=== PATIENT | male | born 1960 | race Caucasian/White ===

== ENCOUNTER 2017-05-31 09:27 | Observation (INO) ==
[2017-05-31] MEDS ORDERED: Nitroglycerin 0.4 MG TAB.SUBL SL ONE (09:51)
--- NOTE | 2017-05-31 09:59 | Emergency Department Note ---
Disposition Clinical Impression: Chest pain Qualifiers: Chest pain type: unspecified Qualified Code(s): R07.9 - Chest pain, unspecified Disposition: Admitted As Inpatient Condition: Fair Forms: ED Satisfaction Letter Time of Disposition: 11:19 Chest Pain HPI - General Chief Complaint: ED Chest Pain Stated Complaint: CP Time Seen by Provider: 05/31/17 09:31 Source: patient Limitations: no limitations Vital Signs Reviewed: Yes Nursing Notes Reviewed: Yes - History of Present Illness HPI Narrative: Patient is a 57-year-old male who presents to [facility] ED with a chief complaint of substernal chest pressure. States the symptoms started this morning when he first woke up around 4 AM. Was a sharp stabbing pain at that time. States the pain went away on its own so he decided to go on to work. The pain then returned as a chest pressure and he decided to drive himself in. Patient has had some shortness of breath with exertion. States he had a park far away and had to stop and rest on his way in to the emergency department. Denies any nausea, vomiting, fever or chills. No recent cough or cold. Patient does have chest pressure at this time. Past medical history significant for coronary artery disease with 2 stents placed approximately 10 years ago. Patient sees agriscience instructor Dr. Merida here and is scheduled to get multiple tests done tomorrow. Pt complaint: chest pain Onset (ago): hour(s) Duration: intermittent Onset: during exertion Pain Location: substernal Severity: moderate Severity scale (1-10): 5 Quality: heaviness, sharp Pain Radiation: RUE, LUE, jaw/teeth Improves with: nothing Worsens with: nothing Associated symptoms: Reports: dyspnea. Denies: nausea, vomiting, fever, cough Treatments prior to arrival chest pain: aspirin - Related Data Home Medications Medication Instructions Recorded Confirmed Atorvastatin [Lipitor] 40 mg PO HS 05/31/17 05/31/17 Clopidogrel [Plavix] 75 mg PO DAILY 05/31/17 05/31/17 Lisinopril 30 mg PO DAILY 05/31/17 05/31/17 Metformin HCl [Glucophage] 1,000 mg PO BID 05/31/17 05/31/17 Metoprolol XL (24 HR) Succ [Toprol 25 mg PO BID 05/31/17 05/31/17 XL] Umeclidinium Brm/Vilanterol Tr 1 puff IH DAILY 05/31/17 05/31/17 [Anoro Ellipta 62.5-25 Mcg INH] hydroCHLOROthiazide 25 mg PO DAILY 05/31/17 05/31/17 [Hydrochlorothiazide] Allergies Allergy/AdvReac Type Severity Reaction Status Date / Time No Known Allergies Allergy Verified 06/07/15 10:12 All systems ED: reviewed and negative except as stated. Chest Pain PMH - Past Medical History Medical history: Reports: coronary artery disease, diabetes, hyperlipidemia, hypertension, myocardial infarction Surgical history: Reports: angioplasty/stent Psychiatric history: Reports: no psych history - Social History Smoking Status: Current every day smoker Alcohol use: Reports: none Drug use: Reports: none Physical Exam - General Limitations: no limitations General appearance: alert, in no apparent distress - Head Head exam: atraumatic, normocephalic, normal inspection - Eye Eye exam: Present: normal appearance, EOMI - ENT ENT exam: normal exam, normal oropharynx, mucous membranes moist - Neck Neck exam: Present: normal inspection, full ROM, trachea midline - Chest Chest inspection: Present: normal inspection, symmetric chest wall rise - Respiratory Respiratory exam: Present: normal lung sounds bilaterally - Cardiovascular Cardiovascular exam: Present: regular rate, normal rhythm, normal heart sounds - Abdominal Exam Abdominal exam: Present: soft, Non-Tender. Absent: tenderness, distention, guarding, rebound, rigidity - Extremities Exam Extremities exam: Present: normal inspection, full ROM. Absent: tenderness, pedal edema - Back Exam Back exam: Present: normal inspection, full ROM. Absent: tenderness - Neurological Exam Neurological exam: Present: alert, oriented X3 - Psychiatric Psychiatric exam: Present: normal affect, normal mood - Skin Skin exam: Present: warm, dry, intact, normal color Course Course Narrative: Patient seen and examined. Substernal chest pain described as tightness. Patient does have multiple risk factors including prior DC, CAD, smoking, hypertension, hyperlipidemia. We will do a cardiopulmonary workup here and likely admit for chest pain rule out. We will do nitroglycerin trial. He already had an aspirin and Plavix this morning. - Reevaluation(s) Reevaluation #1: Patient's lab work and imaging unremarkable. Patient did have immediate positive response to nitroglycerin trial with relief of chest pressure. I discussed with agriscience instructor Dr. Castaneda and they will consult. We will admit for chest pain, rule out ACS. Discussed with hospitalist Dr. Stoner who has accepted patient for admission. Time: 11:19 Vital Signs Temperature 97.5 F L 05/31/17 09:35 Pulse Rate 73 05/31/17 09:35 Respiratory Rate 18 05/31/17 09:35 Blood Pressure 145/86 05/31/17 09:35 O2 Sat by Pulse Oximetry 97 05/31/17 09:35 Temperature 97.5 F L 05/31/17 09:35 Pulse Rate 64 05/31/17 11:16 Respiratory Rate 16 05/31/17 11:16 Blood Pressure 137/84 05/31/17 11:16 O2 Sat by Pulse Oximetry 95 05/31/17 11:16 Oxygen Delivery Oxygen Delivery Room Air Chest Pain - Medical Records Medical records reviewed: Yes I reviewed the patient's medical records. - Lab Data Lab results reviewed: Yes I reviewed the patient's lab results. Result diagrams: 05/31/17 09:58 05/31/17 09:58 Lab Results 05/31/17 05/31/17 05/31/17 Range/Units 09:58 09:58 09:58 WBC 11.1 (4.3-11.1) K/mcL RBC 4.51 (4.19-5.50) M/mcL Hgb 14.5 (12.9-16.9) g/dL Hct 42.6 (37.5-50.1) % MCV 94.5 (83.0-100.0) fL MCH 32.2 (28.0-33.3) pg MCHC 34.0 (31.6-35.5) g/dL RDW 13.1 (11.5-14.5) % Plt Count 242 (140-400) K/mcL MPV 9.1 L (9.4-12.4) fL Immature Gran % 0.5 (0-4) % Seg Neutrophils % 73.7 % Lymphocytes % 18.7 % Monocytes % 5.4 % Eosinophils % 1.4 % Basophils % 0.3 % Neutrophils # 8.1 (1.6-8.9) K/mcL Lymphocytes # 2.1 (0.6-4.6) K/mcL Monocytes # 0.6 (0.0-1.3) K/mcL Eosinophils # 0.2 (0.0-0.6) K/mcL Basophils # 0.0 (0.0-0.2) K/mcL PT 11.0 (9.4-12.1) Seconds INR 1.0 APTT 28.9 (26.0-36.0) Seconds Sodium (136-145) mEq/L Potassium (3.5-4.5) mEq/L Chloride (98-109) mEq/L Carbon Dioxide (19-29) mEq/L BUN (8-26) mg/dL Creatinine (0.72-1.25) mg/dL Est GFR ( Amer) (> 60) Est GFR (Non-Af Amer) (> 60) BUN/Creatinine Ratio (6-26) Glucose (70-99) mg/dL Calculated Osmolality (280-300) Calcium (8.6-10.8) mg/dL Troponin I (0-0.03) ng/mL B-Natriuretic Peptide 36 (0-100) pg/mL 05/31/17 05/31/17 Range/Units 09:58 09:58 WBC (4.3-11.1) K/mcL RBC (4.19-5.50) M/mcL Hgb (12.9-16.9) g/dL Hct (37.5-50.1) % MCV (83.0-100.0) fL MCH (28.0-33.3) pg MCHC (31.6-35.5) g/dL RDW (11.5-14.5) % Plt Count (140-400) K/mcL MPV (9.4-12.4) fL Immature Gran % (0-4) % Seg Neutrophils % % Lymphocytes % % Monocytes % % Eosinophils % % Basophils % % Neutrophils # (1.6-8.9) K/mcL Lymphocytes # (0.6-4.6) K/mcL Monocytes # (0.0-1.3) K/mcL Eosinophils # (0.0-0.6) K/mcL Basophils # (0.0-0.2) K/mcL PT (9.4-12.1) Seconds INR APTT (26.0-36.0) Seconds Sodium 139 (136-145) mEq/L Potassium 3.9 (3.5-4.5) mEq/L Chloride 103 (98-109) mEq/L Carbon Dioxide 25 (19-29) mEq/L BUN 17 (8-26) mg/dL Creatinine 1.06 (0.72-1.25) mg/dL Est GFR ( Amer) > 60 (> 60) Est GFR (Non-Af Amer) > 60 (> 60) BUN/Creatinine Ratio 16 (6-26) Glucose 134 H (70-99) mg/dL Calculated Osmolality 292 (280-300) Calcium 10.1 (8.6-10.8) mg/dL Troponin I 0.01 (0-0.03) ng/mL B-Natriuretic Peptide (0-100) pg/mL - Radiology Data Radiology results reviewed: Yes I reviewed the patient's radiology results. Chest X-Ray 05/31/17 09:51 IMPRESSION: 1. No active pulmonary disease. D/ / Beni Tavares MD / Beni Tavares MD Interpreting Provider: Beni Tavares MD - EKG Data EKG attestation: Yes I reviewed and interpreted this EKG. EKG results narrative: EKG done at 941 shows normal sinus rhythm with a rate of [address] elevation or depression. Normal axis. Occasional PVC noted. Unchanged from prior EKG done 05/23/2014. Heart Score - Score History: Moderately Suspicious EKG: Normal Age: 45-65 Risk Factors: Equal/Greater than 3 risk factor or history of atherosclerotic disease Troponin: Less than normal limit HEART Score Total: 4
[2017-05-31 10:10] LABS: Basophils % 0.3 %; Eosinophils # 0.2 K/mcL (0.0-0.6); Eosinophils % 1.4 %; Hematocrit 42.6 % (37.5-50.1); Hemoglobin 14.5 g/dL (12.9-16.9); Immature Granulocytes % 0.5 % (0-4); Lymphocytes # 2.1 K/mcL (0.6-4.6); Lymphocytes % 18.7 %; Mean Corpuscular Hemoglobin 32.2 pg (28.0-33.3); Mean Corpuscular Volume 94.5 fL (83.0-100.0); Mean Platelet Volume 9.1 fL (9.4-12.4); Monocytes # 0.6 K/mcL (0.0-1.3); Monocytes % 5.4 %; Neutrophils # 8.1 K/mcL (1.6-8.9); Platelet Count 242 K/mcL (140-400); Red Blood Count 4.51 M/mcL (4.19-5.50); Red Cell Distribution Width 13.1 % (11.5-14.5); Segmented Neutrophils % 73.7 %
--- NOTE | 2017-05-31 10:13 | Emergency Department Note ---
START Narrative - START START: I examined this patient and my medical decision-making was reviewed with the Resident Physician. I agree with the documented findings, disposition and treatment plan as described except to the extent set forth below. 57 year old male with several risks factors for ACS in addition to chronic long standing smoker and has two cardiac stents placed 10 years ago and follows with Dr. Merida. He was scheduled for increased testing with echo/carotid duplex ultrsound and stress test and was strictly insturcte to come ot the ED if his chest pain returns. His symptoms are concerning for unstable angina and we will admit ot meidicne and treat with ASA/nitro
[2017-05-31 10:18] LABS: Activated Partial Thrombo Time 28.9 Seconds (26.0-36.0)
[2017-05-31 10:24] LABS: BUN/Creatinine Ratio 16 (6-26); Blood Urea Nitrogen 17 mg/dL (8-26); Calcium 10.1 mg/dL (8.6-10.8); Carbon Dioxide 25 mEq/L (19-29); Chloride 103 mEq/L (98-109); Glucose 134 mg/dL (70-99); Osmolality,Calculated 292 (280-300); Potassium 3.9 mEq/L (3.5-4.5); Sodium 139 mEq/L (136-145); eGFR For African Americans > 60 (> 60); eGFR For Non-African Americans > 60 (> 60)
[2017-05-31] MEDS ORDERED: Ondansetron 4 MG/2 ML VIAL IVP PRN (11:58)
[2017-05-31] MEDS ORDERED: *HR* HYDROcodone/Acet 5/325 mg TABLET PO PRN (11:58)
[2017-05-31] MEDS ORDERED: Acetaminophen 325 MG TABLET PO PRN (11:58)
[2017-05-31] MEDS ORDERED: Nitroglycerin 0.4 MG TAB.SUBL SL PRN (12:05)
[2017-05-31] MEDS ORDERED: Benzonatate 100 MG CAPSULE PO PRN (12:06)
[2017-05-31] MEDS ORDERED: Naloxone 0.4 MG/ML INJ IVP PRN (12:09)
[2017-05-31] MEDS ORDERED: Dextrose Gel 15 GM PO PRN ×2 (12:15)
[2017-05-31] MEDS ORDERED: D5% in Water 1,000 ML IVC PRN (12:15)
[2017-05-31] MEDS ORDERED: *HR* Dextrose 50 % in Water (Syg) 50 ML SYRINGE IVP PRN (12:15)
--- NOTE | 2017-05-31 12:23 | Internal Med History&Physical ---
<Spenser Gavin - Last Filed: 05/31/17 19:49> Date of Encounter: 05/31/17 Time of Encounter: 11:00 Assessment and Plan (1) Chest pain Current visit: Yes Status: Acute Patient reports chest pain that began this morning at 4 a.m. which he describes as sharp and stabbing that resolved. Patient then went to work and had chest pressure. Patient denies radiation to arm, neck, or back. Patient reports 1 nitroglycerin helped with the pain. Initial troponin 0.01. Patient has hx of previous [place] 12 years ago with stent placement x2 at [facility]. Patient is followed by Dr. Merida. EKG today shows sinus rhythm with occasional supraventricular premature complexes. On exam, patient denies any current CP. Will trend troponin x2. Echocardiogram, BRANDEN, and bilateral carotid Doppler duplex imaging ordered. Nuclear pharm stress test ordered. Patient to be NPO at midnight. Cardiology consult ordered and will patient based on test results. Patient placed on continuous cardiac telemetry. Will continue patient's Plavix, hydrochlorothiazide, metoprolol, Lipitor, and aspirin therapy. Mr. Hilton is a high risk for cardiac event based on previous history of [place], current tobacco abuse, current symptoms, and risk factors and will be placed and observation status. Qualifiers: Chest pain type: other chest pain Qualified Code(s): R07.89 - Other chest pain; R07.8 - Other chest pain (2) SOB (shortness of breath) Current visit: Yes Status: Acute Patient reports acute SOB accompanying CP. Patient has hx of COPD and smokes 1.5 -3 PPD. Patient denies home O2 use and is 98% on RA on admission. Cough present with sputum production. Tessalon 100 mg TID ordered. Will continue patient's inhaler and add DuoNeb Q6 PRN. (3) CAD (coronary artery disease) Current visit: Yes Status: Chronic Hx of chronic CAD. Lipid panel and A1c ordered in a.m. labs. EKG today shows sinus rhythm with occasional supraventricular premature complexes. Will continue patient's Plavix, hydrochlorothazide, metoprolol, and Lipitor. Will add aspirin therapy. Patient placed on continuous cardiac telemetry. Qualifiers: Coronary Disease-Associated Artery/Lesion type: [place] artery [place] vs. transplanted heart: [place] heart Qualified Code(s): I25.10 - Atherosclerotic heart disease of [place] coronary artery without angina pectoris (4) Diabetes Current visit: Yes Status: Chronic Hx of chronic diabetes controlled by oral anti-hyperglycemic medications. BG 134 on admission. Will hold patient's Glucophage and administer low-dose correction insulin sliding scale and hypoglycemic protocol. BG checks ACHS. A1c ordered in a.m. labs. 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 Lipid panel ordered in a.m. labs. Will continue patient's Lipitor. Qualifiers: Hyperlipidemia type: pure hypercholesterolemia Qualified Code(s): E78.00 - Pure hypercholesterolemia, unspecified; E78.0 - Pure hypercholesterolemia (6) HTN (hypertension) Current visit: Yes Status: Chronic Hx of chronic HTN. Monitor patient and VS. Continue patient's hydrochlorothiazide and metoprolol. Qualifiers: Hypertension type: essential hypertension Qualified Code(s): I10 - Essential (primary) hypertension (7) Previous myocardial infarction older than 8 weeks Current visit: Yes Status: Resolved Hx of previous [place] 12 years ago with stent placement x2 at [facility]. (8) COPD (chronic obstructive pulmonary disease) Current visit: Yes Status: Acute Hx of chronic COPD. Patient reports smoking 1.5-3 PPD and currently has productive cough. Patient denies use of home O2 or BiPap/CPAP. Patient is 98-100 % on RA. Tessalon 100 mg TID for cough. Patient counseled on dangers of continued tobacco abuse on his current health status and risk for cardiac event. Patient states he is not interested in quitting smoking at this time. Qualifiers: COPD type: emphysema Emphysema type: unspecified Qualified Code(s): J43.9 - Emphysema, unspecified (9) DVT prophylaxis Current visit: Yes Status: Acute Heparin 5,000 units SQ Q8 for DVT prophylaxis. Internal Medicine - H&P: HPI Chief complaint: Chest pain Admitted From: Emergency Dept Plans for Post Hospital Care: Home History of present illness: Mr. Waterman is a 57 year old male with medical history of CAD, COPD, diabetes controlled with oral antihyperglycemic indications. Hyperlipidemia, and hypertension presents from the ED with chief complaint of left-sided chest pain began this morning approximately at 4 AM which he describes as sharp and stabbing. States pain went away so he went on to work where he experienced the pain again with shortness of breath. Patient denies radiation to neck, arm, or back. Patient does report numbness in face with pins and needle sensation in bilateral hands during episodes. Patient has history of [place] 12 years ago with 2 stents placed at [facility]. He is currently followed by Dr. Merida. Patient reports she is a current smoker smoking 1.5-3 packs per day. Patient reports chest pain, shortness of breath, and cough but denies recent illness, nausea, vomiting, fever, chills, headache, changes in vision, abdominal pain, neurological deficits, weakness, unusual bleeding, lightheadedness, dizziness, presyncope, or syncope. Past Med Surg Social Fam HX - Past Medical History Source: patient, old records reviewed, obtained from family Medical history: coronary artery disease, diabetes (Currently controlled with oral anti-hyperglycemics), hyperlipidemia, hypertension, myocardial infarction ( 12 years ago with two stents placed at [facility]) Psychiatric history: no psych history - Past Surgical History Surgical History: angioplasty/stent (x2) - Social History Smoking Status: Current every day smoker Packs per day: 1.5 - 3 PPD Smokeless Tobacco Status: No Alcohol use: none Drug use: none Occupational status: employed Current living situation: Home, With Family Activity Level: Independent ambulation Recent Out of Country Travel Within the Last 8 Weeks: No Exposure or Possible Exposure to Illness During Travel: No - Family History Father Race: Family Member Ethnicity: Non- Living Status: Age at : 83 Cause of : CHF Hx Family Cardiac Disorders: Yes (CHF, Stroke) Hx Family Endocrine Disorder: Yes (DM) Mother Race: Family Member Ethnicity: Non- Living Status: Age at : 73 Cause of : CHF Hx Family Cardiac Disorders: Yes (CHF, HD, HTN, HLD, Triple Bypass) Hx Family Cancer: Yes (Lung) Brother Race: Family Member Ethnicity: Non- Living Status: Age at : 53 Cause of : Sepsis Hx Family Cardiac Disorders: Yes (PAD, HD) Sister Race: Family Member Ethnicity: Non- Living Status: Age at : 49 Cause of : PE Hx Family Cardiac Disorders: Yes ([place], PE) Hx Family Endocrine Disorder: Yes (Cirrhosis) Internal Medicine - H&P: Meds Atorvastatin [Lipitor] 40 mg PO HS 05/31/17 [History] Clopidogrel [Plavix] 75 mg PO DAILY 05/31/17 [History] Lisinopril 30 mg PO DAILY 05/31/17 [History] Metformin HCl [Glucophage] 1,000 mg PO BID 05/31/17 [History] Metoprolol XL (24 HR) Succ [Toprol XL] 25 mg PO BID 05/31/17 [History] Umeclidinium Brm/Vilanterol Tr [Anoro Ellipta 62.5-25 Mcg INH] 1 puff IH DAILY 05/31/17 [History] hydroCHLOROthiazide [Hydrochlorothiazide] 25 mg PO DAILY 05/31/17 [History] 3 Allergy/AdvReac Type Severity Reaction Status Date / Time Penicillins Allergy See Verified 05/31/17 12:15 Comments All Systems PM: A 10-system review of systems was performed and is negative for pertinent findings except as documented above in the HPI. - Constitutional Constitutional: no chills, no fever(s), no night sweats - EENT Eyes: no change in vision, no discharge, no pain, no photophobia Ears: no ear discharge, no ear pain, no tinnitus Nose, mouth and throat: no dysphagia, no nasal discharge, no neck pain, no sore throat - Breasts Breasts: as per HPI - Cardiovascular Cardiovascular ROS IM: as per HPI, chest pain, dyspnea, dyspnea on exertion, edema (Patient reports bilateral pedal edema and currently takes hydrochlorothiazide) - Respiratory Respiratory: as per HPI, cough, dyspnea, dyspnea on exertion - Gastrointestinal Gastrointestinal: no abdominal pain, no diarrhea, no hematemesis, no hematochezia, no melena, no nausea, no vomiting - Genitourinary Genitourinary ROS male: as per HPI - Musculoskeletal Musculoskeletal ROS IM: numbness (Face during CP that was transient), tingling ( Bilateral hands w/CP which has resolved) - Integumentary Integumentary IM: no rash, no unusual bruising - Neurological Neurological ROS: no confusion, no convulsions, no focal weakness, no numbness, no tingling, no tremor(s) - Psychiatric Psychiatric: as per HPI - Endocrine Endocrine IM: as per HPI - Hematologic/Lymphatic Hematologic/Lymphatic: no easy bruising - Allergic/Immunologic Allergic/Immunologic: as per HPI - Constitutional Vitals: Temp Pulse Resp BP Pulse Ox 97.5 F L 64 16 150/72 95 05/31/17 09:35 05/31/17 11:16 05/31/17 12:15 05/31/17 12:15 05/31/17 11:16 General appearance: Present: cooperative, A&O X 3, pleasant, no acute distress, obese, answers questions appropriately - Head Head exam: Present: atraumatic, normocephalic - Eye Eye exam: Present: PERRL, conjuntiva pink, sclera anicteric Pupils: Present: PERRL - ENT ENT exam: Present: normal exam, normal external ear exam - Neck Neck exam general surgery: Present: normal inspection, supple, trachea midline - Respiratory Respiratory exam: Present: CTAB. Absent: accessory muscle use, rales, rhonchi, wheezes - Cardiovascular Cardiovascular exam: Present: RRR, +S1, +S2. Absent: diastolic murmur, gallop, rubs, systolic murmur - GI/Abdominal GI/Abdominal exam: Present: normal bowel sounds, soft, no peritoneal signs. Absent: distended, tenderness - Rectal Rectal exam: Present: deferred - Additional comments: exam deferred. - Extremities Exam Extremities exam: Present: pedal edema (Mild, non-pitting bilateral edema), warm , radial pulses palpable and symmetrical. Absent: calf tenderness, cyanotic - Back Exam Back exam: Present: normal inspection - Neurological Exam Neurological exam: Present: CN II-XII intact, oriented X3, no focal deficits. Absent: pronater drift, facial droop, speech deficit - Psychiatric Psychiatric exam: Present: normal affect, normal mood - Skin Skin exam: Present: dry, intact Internal Med - H&P Results - Labs CBC & Chem 7: 05/31/17 09:58 05/31/17 09:58 - EKG Data EKG shows normal: sinus rhythm - EKG Data Prior EKG available for review: yes EKG comments: 05/31/17 12:33 EKG dated 05/23/14 shows sinus rhythm and normal ECG. EKG dated 05/31/17 shows sinus rhythm with occasional supraventricular premature complexes. Borderline ECG - Diagnostic Studies Chest x-ray Additional comments: Impressions Chest X-Ray 05/31/17 09:51 IMPRESSION: 1. No active pulmonary disease. D/ / Beni Tavares MD / Beni Tavares MD Interpreting Provider: Beni Tavares MD <Austen Stoner - Last Filed: 05/31/17 20:32> Date of Encounter: 05/31/17 Internal Medicine - H&P: HPI History of present illness: Mr. Waterman is a 57 year old male All Systems PM: A 10-system review of systems was performed and is negative for pertinent findings except as documented above in the HPI. - Constitutional Vitals: Temp Pulse Resp BP Pulse Ox 98.4 F 84 16 147/88 99 05/31/17 15:37 05/31/17 15:37 05/31/17 15:37 05/31/17 15:37 05/31/17 15:37 Internal Med - H&P Results - Labs CBC & Chem 7: 05/31/17 09:58 05/31/17 09:58 Labs: Cardiac Enzymes 05/31/17 Range/Units 16:11 Troponin I 0.00 (0-0.03) ng/mL - Attending Attestation I have personally performed a face to face evaluation on this patient. I have reviewed and agree with the care plan. History and Exam by me shows: Patient presented to the hospital while chest pain and currently is chest pain- free. Exam he is in no acute distress heart is regular lungs are clear. Extremities with no edema. Plan: Transient troponin. Heart monitor. Echocardiogram carotid Dopplers and stress test.
[2017-05-31] MEDS ORDERED: Ipratropium/Albuterol Neb 3 ML IH PRN (13:09)
[2017-05-31] MEDS: *HR* Heparin 5,000 UNIT/ML VIAL SQ SCH ×2 (15:09→21:06)
[2017-05-31] MEDS: Aspirin Enteric Coated 81 MG Tablet PO SCH (15:09)
[2017-05-31] MEDS: Pantoprazole 40 MG VIAL IVP SCH (15:09)
[2017-05-31] MEDS: Insulin LISPRO 300 UNITS/3 ML VIAL SQ SCH (17:56)
[2017-05-31] MEDS ORDERED: Insulin LISPRO 300 UNITS/3 ML VIAL SQ SCH (21:00)
[2017-05-31] MEDS: Metoprolol XL (24 HR) Succ 25 MG TAB.ER.24H PO SCH (21:06)
[2017-06-01 04:59] LABS: Basophils % 0.2 %; Eosinophils # 0.2 K/mcL (0.0-0.6); Hematocrit 38.5 % (37.5-50.1); Immature Granulocytes % 0.4 % (0-4); Lymphocytes % 23.3 %; Mean Corpuscular HGB Conc 32.7 g/dL (31.6-35.5); Mean Corpuscular Hemoglobin 31.5 pg (28.0-33.3); Mean Corpuscular Volume 96.3 fL (83.0-100.0); Mean Platelet Volume 9.3 fL (9.4-12.4); Monocytes # 0.6 K/mcL (0.0-1.3); Monocytes % 6.5 %; Neutrophils # 5.7 K/mcL (1.6-8.9); Platelet Count 192 K/mcL (140-400); Red Cell Distribution Width 12.9 % (11.5-14.5); Segmented Neutrophils % 67.6 %
[2017-06-01 05:00] LABS: Hemoglobin 12.6 g/dL (12.9-16.9)
[2017-06-01 05:10] LABS: Prothrombin Time 10.8 Seconds (9.4-12.1)
[2017-06-01 05:12] LABS: Hemoglobin A1C 6.5 %
[2017-06-01 05:13] LABS: Activated Partial Thrombo Time 30.1 Seconds (26.0-36.0)
[2017-06-01 05:17] LABS: Alanine Aminotransferase 10 Units/L (0-55); Albumin 3.4 g/dL (3.5-5.0); Albumin/Globulin Ratio 1.1 (1.1-2.2); Alkaline Phosphatase 83 Units/L (38-126); Aspartate Amino Transferase 12 Units/L (5-34); BUN/Creatinine Ratio 16 (6-26); Bilirubin,Total 0.2 mg/dL (0.2-1.2); Blood Urea Nitrogen 17 mg/dL (8-26); Calcium 9.2 mg/dL (8.6-10.8); Carbon Dioxide 23 mEq/L (19-29); Chloride 105 mEq/L (98-109); Chol/HDL Ratio 5.4 (0-4.9); Cholesterol 135 mg/dL (< 200); Globulin 3.1 g/dL (2.4-3.5); Glucose 142 mg/dL (70-99); HDL Cholesterol 25 mg/dL (40-59); LDL Cholesterol,Calculated 57 mg/dL (0-99); Magnesium 1.7 mg/dL (1.6-2.6); Osmolality,Calculated 288 (280-300); Potassium 4.1 mEq/L (3.5-4.5); Sodium 137 mEq/L (136-145); Total Protein 6.5 g/dL (6.0-8.3); Triglycerides 267 mg/dL (< 150); eGFR For African Americans > 60 (> 60); eGFR For Non-African Americans > 60 (> 60)
[2017-06-01] MEDS: *HR* Heparin 5,000 UNIT/ML VIAL SQ SCH (06:33)
[2017-06-01] MEDS ORDERED: Regadenoson 0.4 MG/5 ML SYRINGE IVP ONE (06:43)
[2017-06-01] MEDS ORDERED: hydroCHLOROthiazide 25 MG TABLET PO SCH (09:00)
--- NOTE | 2017-06-01 09:01 | Internal Med Progress Note ---
Date of Encounter: 06/01/17 Time of Encounter: 08:58 - Subjective Interval history: sitting up in bed comfortably talking with he reports that his chest pain has resolved and denies diaphoresis, sob, nausea , vomiting he is interested in one he might be a medical home today pending results of the tests - Constitutional Vitals: Temp Pulse Resp BP Pulse Ox 98.3 F 59 12 123/70 95 06/01/17 02:58 06/01/17 02:58 06/01/17 02:58 06/01/17 02:58 06/01/17 02:58 General appearance: Present: cooperative, A&O X 3, pleasant, no acute distress, obese, answers questions appropriately Exam: Gen.: Vitals noted. No acute distress. AAOx3 HEENT: oropharynx clear, Normocephalic, atraumatic Cardiac: RRR, no murmur, +S1/S2 Pulmonary: CTA bilaterally, no wheezes, rales or rhonchi, equal chest expansion Abdomen: soft, nontender, Bowel sounds noted, no guarding Extremities: no BLE edema, nontender calf, no cyanosis or clubbing Neuro: A&Ox3, moves all extremities Psych: Appropriate mood and behavior Internal Medicine: Result - Labs CBC & Chem 7: 06/01/17 04:24 06/01/17 04:24 Labs: Short CBC 06/01/17 Range/Units 04:24 WBC 8.4 (4.3-11.1) K/mcL Hgb 12.6 L D (12.9-16.9) g/dL Hct 38.5 (37.5-50.1) % Plt Count 192 (140-400) K/mcL Neutrophils # 5.7 (1.6-8.9) K/mcL BMP 06/01/17 04:24 Sodium 137 Potassium 4.1 Chloride 105 Carbon Dioxide 23 BUN 17 Creatinine 1.05 Glucose 142 H Calcium 9.2 Cardiac Enzymes 05/31/17 05/31/17 Range/Units 16:11 21:01 Troponin I 0.00 0.00 (0-0.03) ng/mL Liver Function 06/01/17 Range/Units 04:24 Total Bilirubin 0.2 (0.2-1.2) mg/dL AST 12 (5-34) Units/L ALT 10 (0-55) Units/L Alkaline Phosphatase 83 (38-126) Units/L Albumin 3.4 L (3.5-5.0) g/dL - ABG Interpretation ABG results: PT/INR, D-dimer PT 10.8 Seconds (9.4-12.1) 06/01/17 04:24 Consult Discharge Plan - Plan Referrals: Reid James DO [Primary Care Provider] -
[2017-06-01] MEDS: Insulin LISPRO 300 UNITS/3 ML VIAL SQ SCH ×2 (09:33→11:45)
[2017-06-01 11:36] VITALS: BP 120/70
[2017-06-01] MEDS: Aspirin Enteric Coated 81 MG Tablet PO SCH (12:43)
[2017-06-01] MEDS: Pantoprazole 40 MG VIAL IVP SCH (12:43)
[2017-06-01] MEDS: Metoprolol XL (24 HR) Succ 25 MG TAB.ER.24H PO SCH (12:44)
--- NOTE | 2017-06-01 13:08 | Discharge Summary ---
<Sara Scott - Last Filed: 06/01/17 15:19> Date of Encounter: 06/01/17 Time of Encounter: 13:06 - Discharge Diagnosis (1) Chest pain Priority: Primary Status: Acute Qualifiers: Chest pain type: other chest pain Qualified Code(s): R07.89 - Other chest pain; R07.8 - Other chest pain (2) SOB (shortness of breath) Priority: Secondary Status: Acute (3) CAD (coronary artery disease) Priority: Secondary Status: Chronic Qualifiers: Coronary Disease-Associated Artery/Lesion type: [place] artery [place] vs. transplanted heart: [place] heart Qualified Code(s): I25.10 - Atherosclerotic heart disease of [place] coronary artery without angina pectoris (4) Diabetes Priority: Secondary Status: Chronic Qualifiers: Diabetes mellitus type: type 2 Diabetes mellitus complication status: with unspecified complications Diabetes mellitus potato peeler insulin use: without potato peeler use Qualified Code(s): E11.8 - Type 2 diabetes mellitus with unspecified complications (5) HLD (hyperlipidemia) Priority: Secondary Status: Chronic Qualifiers: Hyperlipidemia type: pure hypercholesterolemia Qualified Code(s): E78.00 - Pure hypercholesterolemia, unspecified; E78.0 - Pure hypercholesterolemia (6) HTN (hypertension) Priority: Secondary Status: Chronic Qualifiers: Hypertension type: essential hypertension Qualified Code(s): I10 - Essential (primary) hypertension (7) Previous myocardial infarction older than 8 weeks Priority: Secondary Status: Resolved (8) COPD (chronic obstructive pulmonary disease) Priority: Secondary Status: Acute Qualifiers: COPD type: emphysema Emphysema type: unspecified Qualified Code(s): J43.9 - Emphysema, unspecified (9) DVT prophylaxis Priority: Secondary Status: Acute - Discharge Medications Home Medications: Atorvastatin [Lipitor] 40 mg PO HS 05/31/17 [History] Clopidogrel [Plavix] 75 mg PO DAILY 05/31/17 [History] Lisinopril 30 mg PO DAILY 05/31/17 [History] Metformin HCl [Glucophage] 1,000 mg PO BID 05/31/17 [History] Metoprolol XL (24 HR) Succ [Toprol Xl] 25 mg PO BID 05/31/17 [History] Umeclidinium Brm/Vilanterol Tr [Anoro Ellipta 62.5-25 Mcg INH] 1 puff IH DAILY 05/31/17 [History] hydroCHLOROthiazide [Hydrochlorothiazide] 25 mg PO DAILY 05/31/17 [History] Allergies/Adverse Reactions: 3 Allergy/AdvReac Type Severity Reaction Status Date / Time Penicillins Allergy See Verified 05/31/17 12:15 Comments Procedures/tests Complete & Pending: Procedures Performed prior 72 hours Category Date Time Status NM skylar perf SPECT multi [NM] Routine Exams 05/31/17 12:18 Taken BRANDEN [EV ankle brachial index] Stat Y 05/31/17 12:14 Completed EV carotid duplex imaging BI Stat Y 05/31/17 12:07 Completed EV echocardiogram Stat Y 05/31/17 12:09 Completed SP pharm nuclear stress Routine Y 06/01/17 07:30 Completed Date of admission: 05/31/17 11:41 Primary care physician: Reid James DO Discharging clinician: Thomas Umaña - Patient Status Disposition: Home, Self-Care Condition: Good Functional capacity at discharge: independent ambulation Overall status at discharge: patient is back to baseline - Discharge Instructions Instructions: Chest Pain (DC), Diabetes Mellitus Type 2 in Adults (DC), Chronic Obstructive Pulmonary Disease (DC), Chronic Hypertension (DC) Follow Up With: Max Berrios MD [Partnered Physician] - 06/21/17 2:00 pm Reid James DO [Primary Care Provider] - 06/09/17 11:30 am Romeo Merida DO [Partnered Physician] - (Dr. Merida's office will be calling you with an appointment. Thank you!! 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 Merida. follow-up with Dr. Berrios who is a vascular surgeon for you right internal carotid artery stenosis return to the hospital should you develop chest pain, shortness of breath, fever , chills, diaphoresis, nausea, vomiting it is advised that you quit smoking - Diet and Activity Activity: resume usual activities as tolerated Diet: advance to your usual diet Hospital course: Mr. Waterman is a 57 year old male with medical history of CAD, COPD, diabetes controlled with oral antihyperglycemic indications. Hyperlipidemia, and hypertension presents from the ED with chief complaint of left-sided chest pain began this morning approximately at 4 AM which he describes as sharp and stabbing. States pain went away so he went on to work where he experienced the pain again with shortness of breath. Patient denies radiation to neck, arm, or back. Patient does report numbness in face with pins and needle sensation in bilateral hands during episodes. Patient has history of [place] 12 years ago with 2 stents placed at [facility]. He is currently followed by Dr. Merida. Patient reports she is a current smoker smoking 1.5-3 packs per day. Patient reports chest pain, shortness of breath, and cough but denies recent illness, nausea, vomiting, fever, chills, headache, changes in vision, abdominal pain, neurological deficits, weakness, unusual bleeding, lightheadedness, dizziness, presyncope, or syncope. Patient was admitted and workup for chest pain started. chest x-ray showed no acute abnormality. Bilateral carotid duplex showed right internal carotid artery stenosis of 60 to 79%. Ankle brachial index was normal. Stress test was negative for ischemia or infarct. Echocardiogram showed LVEF 60-65%, mild left particular diastolic dysfunction, no significant valvular dysfunction. The patient reported that chest pain had resolved. Troponins continued to stay 0. The patient was informed of the results of the tests. Prior to getting the results of the test he stated that he was looking forward to be discharged as soon as he can be today. Patient was instructed to follow-up with vascular surgery outpatient for the carotid stenosis. 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 It is also instructive to follow-up with his PCP in about a week or 2. He was told to return to the hospital should be developed fever, chills, chest pain, diaphoresis, nausea, vomiting, shortness of breath. Patient is alert and oriented times 3 youthful capacity. He stated clearly stated treatment plan all questions were answered. - Time Spent with Patient Total time spent providing and/or coordinating discharge services: - Constitutional Vitals: Temp Pulse Resp BP Pulse Ox 98.0 F 67 17 120/70 94 06/01/17 11:33 06/01/17 11:33 06/01/17 11:33 06/01/17 11:33 06/01/17 11:33 General appearance: Present: cooperative, A&O X 3, pleasant, no acute distress, obese, answers questions appropriately Exam: Gen.: Vitals noted. No acute distress. AAOx3 HEENT: oropharynx clear, Normocephalic, atraumatic Cardiac: RRR, no murmur, +S1/S2 Pulmonary: CTA bilaterally, no wheezes, rales or rhonchi, equal chest expansion Abdomen: soft, nontender, Bowel sounds noted, no guarding Extremities: no BLE edema, nontender calf, no cyanosis or clubbing Neuro: A&Ox3, moves all extremities Psych: Appropriate mood and behavior <Thomas Umaña H - Last Filed: 06/01/17 17:05> Date of Encounter: 06/01/17 Procedures/tests Complete & Pending: Procedures Performed prior 72 hours Category Date Time Status NM skylar perf SPECT multi [NM] Routine Exams 05/31/17 12:18 Taken BRANDEN [EV ankle brachial index] Stat Y 05/31/17 12:14 Completed EV carotid duplex imaging BI Stat Y 05/31/17 12:07 Completed EV echocardiogram Stat Y 05/31/17 12:09 Completed SP pharm nuclear stress Routine Y 06/01/17 07:30 Completed Date of admission: 05/31/17 11:41 Primary care physician: Reid James DO Hospital course: Mr. Waterman is a 57 year old male - Time Spent with Patient Total time spent providing and/or coordinating discharge services: - Constitutional Vitals: Temp Pulse Resp BP Pulse Ox 98.0 F 67 17 120/70 94 06/01/17 11:33 06/01/17 11:33 06/01/17 11:33 06/01/17 11:33 06/01/17 11:33 - Attending Attestation Follow-up with vascular surgery as outpatient due to right carotid stenosis Continue aspirin and Plavix Time spent on this discharge 40 minutes I examined this patient and my medical decision-making was reviewed with the Resident Physician. I agree with the documented findings, disposition and treatment plan as described except to the extent set forth below.
--- NOTE | 2017-06-01 15:20 | Electrocardiograph Report ---
[place] [id number] Test Date: 2017-05-31 Pat Name: Tonio Waterman Department: 103 Room: 3B45 Gender: M Cold [employer] Operator: [facility] : 1960 Requested By: Arlet Sanchez Order Number: [id number] Reading MD: Viola Sethi Measurements Intervals [place] Rate: 74 P: 64 ME: 193 QRS: 29 QRSD: 103 T: 11 QT: 373 QTc: 400 Interpretive Statements SINUS RHYTHM WITH OCCASIONAL SUPRAVENTRICULAR PREMATURE COMPLEXES Electronically Signed On 06-01-2017 15:18:17 EDT by Viola Sethi
== END 2017-06-01 14:44 | disposition home or self-care (01) ==
LOC: 3BNU 09:27 → EMEROO 09:27 → SUATTDRO 11:41 → 3BNU 12:19
PROVIDERS: ADMIT Internal Medicine; ATTEND Internal Medicine

== ENCOUNTER 2019-08-14 07:48 | Inpatient (IN) ==
[~2019-08-14 07:48] MED LIST: Ethanol\\Acetic Acid\\Na Ace\\Ben 1,000 ML IRRIG.SOLN IR ONE
[2019-08-14] MEDS ORDERED: Albuterol 2.5 MG/3 ML NEBULIZER IH PRN (08:25)
[2019-08-14] MEDS ORDERED: CeFAZolin Syr 2,000MG/20 ML 2,000 MG/20 ML SYRINGE IVPB ONE (08:25)
[2019-08-14] MEDS ORDERED: Ringers Solution, Lactated 1,000 ML IVC SCH (08:30)
[2019-08-14] MEDS ORDERED: *HR* Midazolam HCl 2 MG/2 ML VIAL ONE (08:36)
[2019-08-14] MEDS ORDERED: *HR* FentaNYL (PF) 100 MCG/2 ML VIAL ONE ×2 (08:36→10:33)
[2019-08-14] MEDS ORDERED: Tranexamic Acid 1,000 MG/10 ML VIAL ONE (08:36)
[2019-08-14] MEDS ORDERED: Gabapentin 300 MG CAPSULE PO ONE (09:12)
[2019-08-14] MEDS ORDERED: Celecoxib 200 MG CAPSULE PO ONE (09:12)
[2019-08-14] MEDS ORDERED: *HR* OxyCODONE ER (12 HR) 10 MG TABLET PO ONE (09:13)
[2019-08-14] MEDS ORDERED: Ondansetron 4 MG/2 ML VIAL IVP ONE (09:21)
[2019-08-14] MEDS ORDERED: *HR* OxyCODONE Immed Rel 5 MG TABLET PO PRN ×2 (09:21→13:05)
[2019-08-14] MEDS ORDERED: Ondansetron 4 MG/2 ML VIAL ONE (09:49)
[2019-08-14] MEDS ORDERED: Lidocaine -MPF 4% 5 ML AMPUL ONE (09:49)
[2019-08-14] MEDS ORDERED: Lidocaine -MPF 2% 2 ML VIAL ONE (09:49)
[2019-08-14] MEDS ORDERED: Dexamethasone 4 MG/ML VIAL ONE (09:49)
[2019-08-14] MEDS ORDERED: *HR* Succinylcholine 200 MG/10 ML VIAL IVP ONE (09:49)
[2019-08-14] MEDS ORDERED: *HR* Propofol 200 MG/20 ML VIAL IVP ONE (09:50)
[2019-08-14] MEDS ORDERED: *HR* HYDROMORPHONE 2 MG/ML VIAL ONE (11:23)
[2019-08-14] MEDS: *HR* HYDROmorphone (PF) 1 MG/ML SYRINGE IVP PRN ×3 (11:52→12:08)
[2019-08-14 12:41] LABS: Hematocrit 41.3 % (37.5-50.1); Hemoglobin 13.3 g/dL (12.9-16.9)
[2019-08-14] MEDS ORDERED: D5% in Water 1,000 ML IVC PRN (13:05)
[2019-08-14] MEDS ORDERED: Ondansetron 4 MG/2 ML VIAL IVP PRN (13:05)
[2019-08-14] MEDS ORDERED: *HR* Dextrose 50 % in Water (Syg) 50 ML SYRINGE IVP PRN (13:05)
[2019-08-14] MEDS ORDERED: MOM Conc 10 ML UD.LIQ PO PRN (13:05)
[2019-08-14] MEDS ORDERED: HYDROcodone BIT/Homatropine 5 MG TABLET PO PRN (13:05)
[2019-08-14] MEDS ORDERED: Naloxone 0.4 MG/ML INJ IVP PRN (13:05)
[2019-08-14] MEDS ORDERED: Dextrose Gel 15 GM/37.5 ML TUBE PO PRN ×2 (13:05)
[2019-08-14] MEDS ORDERED: *HR* Promethazine 25 MG/ML VIAL IVP PRN (13:05)
[2019-08-14] MEDS ORDERED: Sennosides 8.6 MG TABLET PO PRN (13:05)
[2019-08-14] MEDS ORDERED: Temazepam 15 MG CAPSULE PO PRN (13:05)
[2019-08-14] MEDS: Insulin LISPRO 300 UNITS/3 ML VIAL SQ SCH ×2 (14:27→18:08)
[2019-08-14] MEDS: Ringers Solution, Lactated 1,000 ML IVC SCH (14:39)
[2019-08-14] MEDS: Ascorbic Acid 500 MG TABLET PO SCH (16:55)
[2019-08-14] MEDS: *HR* Metformin 500 MG TABLET PO SCH (16:55)
[2019-08-14] MEDS: Metoprolol XL (24 HR) Succ 25 MG TAB.ER.24H PO SCH (20:41)
[2019-08-14] MEDS ORDERED: Insulin LISPRO 300 UNITS/3 ML VIAL SQ SCH (21:00)
[2019-08-15] MEDS: Ringers Solution, Lactated 1,000 ML IVC SCH (03:02)
[2019-08-15 07:22] LABS: Basophils % 0.1 %; Eosinophils % 0.1 %; Hematocrit 33.8 % (37.5-50.1); Immature Granulocytes % 0.4 % (0-4); Lymphocytes # 1.2 K/mcL (0.6-4.6); Lymphocytes % 8.7 %; Mean Corpuscular HGB Conc 31.7 g/dL (31.6-35.5); Mean Corpuscular Hemoglobin 31.6 pg (28.0-33.3); Mean Corpuscular Volume 99.7 fL (83.0-100.0); Mean Platelet Volume 9.1 fL (9.4-12.4); Monocytes # 1.2 K/mcL (0.0-1.3); Monocytes % 8.9 %; Neutrophils # 11.3 K/mcL (1.6-8.9); Platelet Count 150 K/mcL (140-400); Red Blood Count 3.39 M/mcL (4.19-5.50); Red Cell Distribution Width 12.9 % (11.5-14.5); Segmented Neutrophils % 81.8 %; White Blood Count 13.9 K/mcL (4.3-11.1)
[2019-08-15 07:23] LABS: Hemoglobin 10.7 g/dL (12.9-16.9)
[2019-08-15 07:44] LABS: BUN/Creatinine Ratio 22 (6-26); Blood Urea Nitrogen 23 mg/dL (8-23); Calcium 8.8 mg/dL (8.6-10.3); Carbon Dioxide 27 mEq/L (23-29); Chloride 104 mEq/L (98-107); Glucose 137 mg/dL (70-105); Osmolality,Calculated 292 (280-300); Potassium 4.9 mEq/L (3.5-5.1); Sodium 138 mEq/L (136-145); eGFR For African Americans > 60 (> 60); eGFR For Non-African Americans > 60 (> 60)
[2019-08-15] MEDS: Insulin LISPRO 300 UNITS/3 ML VIAL SQ SCH (07:49)
[2019-08-15] MEDS ORDERED: *HR* Enoxaparin 30 MG/0.3 ML SYRINGE SQ SCH ×2 (08:53)
[2019-08-15] MEDS ORDERED: Aspirin 81 MG TAB.CHEW PO SCH (09:00)
[2019-08-15] MEDS ORDERED: Multivit/Ca/Min/Fe/FA 1 TAB TABLET PO SCH (09:00)
[2019-08-15] MEDS ORDERED: Empagliflozin [Jardiance] 25 MG PO SCH (09:00)
[2019-08-15] MEDS ORDERED: hydroCHLOROthiazide 25 MG TABLET PO SCH (09:00)
[2019-08-15] MEDS: Ascorbic Acid 500 MG TABLET PO SCH (09:59)
[2019-08-15] MEDS: *HR* Metformin 500 MG TABLET PO SCH (09:59)
[2019-08-15] MEDS: Metoprolol XL (24 HR) Succ 25 MG TAB.ER.24H PO SCH (09:59)
[2019-08-15 11:45] VITALS: BP 124/68
[2019-08-19] MEDS ORDERED: Dulaglutide [Trulicity] 1.5 MG SQ SCH (09:07)
== END 2019-08-15 12:50 | disposition home health service (06) | DRG 470 ==
LOC: SAMDAY 07:48 → 3NENU 12:43
PROVIDERS: ADMIT Orthopaedic Surgery; ATTEND Orthopaedic Surgery

== ENCOUNTER 2020-06-12 20:47 | Observation (INO) ==
[2020-06-12] MEDS ORDERED: Isovue-370 500 ML BOTTLE IVP ONE (21:21)
[2020-06-12] MEDS ORDERED: *HR* FentaNYL (PF) 100 MCG/2 ML VIAL IVP ONE (21:24)
[2020-06-12] MEDS ORDERED: 0.9 % Sodium Chloride 1,000 ML IVC ONE (21:38)
[2020-06-12] MEDS ORDERED: Tdap (Boostrix) Vaccine 0.5 ML SYRINGE IM ONE (21:46)
[2020-06-12 22:10] LABS: Basophils % 0.2 %; Eosinophils # 0.1 K/mcL (0.0-0.6); Eosinophils % 0.3 %; Hematocrit 45.8 % (37.5-50.1); Hemoglobin 15.1 g/dL (12.9-16.9); Immature Granulocytes % 1.5 % (0-4); Lymphocytes # 0.7 K/mcL (0.6-4.6); Lymphocytes % 3.5 %; Mean Corpuscular Hemoglobin 32.1 pg (28.0-33.3); Mean Corpuscular Volume 97.2 fL (83.0-100.0); Mean Platelet Volume 8.8 fL (9.4-12.4); Monocytes # 0.5 K/mcL (0.0-1.3); Monocytes % 2.5 %; Neutrophils # 17.4 K/mcL (1.6-8.9); Nucleated Red Blood Cells 0.1 /100 WBC (0); Platelet Count 227 K/mcL (140-400); Red Blood Count 4.71 M/mcL (4.19-5.50)
[2020-06-12 22:21] LABS: BUN/Creatinine Ratio 19 (6-26); Blood Urea Nitrogen 29 mg/dL (8-23); Calcium 8.9 mg/dL (8.6-10.3); Carbon Dioxide 25 mEq/L (23-29); Chloride 95 mEq/L (98-107); Glucose 193 mg/dL (70-105); Osmolality,Calculated 285 (280-300); Potassium 4.6 mEq/L (3.5-5.1); Sodium 132 mEq/L (136-145); eGFR For African Americans 57 (> 60); eGFR For Non-African Americans 47 (> 60)
[2020-06-12 22:22] LABS: Troponin I < 0.03 ng/mL (< 0.04)
[2020-06-13 00:55] LABS: Bilirubin,Urine Negative (Negative); Blood,Urine Trace (Negative); Clarity,Urine Clear (Clear); Color,Urine Light-Yellow (Yellow); Glucose,Urine (UA) >=1000 mg/dL (Normal); Hyaline Casts,Urine Few per lpf (None Seen); Ketones,Urine Negative (Negative); Leukocyte Esterase,Urine Negative (Negative); Mucus,Urine Few per lpf (None-Few); Nitrite,Urine Negative (Negative); Protein,Urine Negative (Neg-Trace); Specific Gravity,Urine > 1.030 (1.010-1.025); Squamous Epithelial Cell,Urine Few per hpf (None-Few); Urobilinogen,Urine Normal (Normal); WBC,Urine 0-3 per hpf (0-3)
[2020-06-13] MEDS ORDERED: Naloxone 0.4 MG/ML INJ IVP PRN (01:14)
[2020-06-13] MEDS ORDERED: Acetaminophen 325 MG TABLET PO PRN (01:14)
[2020-06-13] MEDS ORDERED: Dextrose Gel 15 GM/37.5 ML TUBE PO PRN ×2 (01:19)
[2020-06-13] MEDS ORDERED: *HR* Dextrose 50 % in Water (Vial) 50 ML VIAL IVP PRN (01:19)
[2020-06-13] MEDS ORDERED: D5% in Water 1,000 ML IVC PRN ×2 (01:19→19:48)
[2020-06-13 02:37] LABS: Hematocrit 44.1 % (37.5-50.1); Hemoglobin 14.9 g/dL (12.9-16.9); Mean Corpuscular HGB Conc 33.8 g/dL (31.6-35.5); Mean Corpuscular Hemoglobin 32.7 pg (28.0-33.3); Mean Corpuscular Volume 96.9 fL (83.0-100.0); Mean Platelet Volume 8.7 fL (9.4-12.4); Platelet Count 197 K/mcL (140-400); Red Blood Count 4.55 M/mcL (4.19-5.50); Red Cell Distribution Width 13.1 % (11.5-14.5); White Blood Count 14.2 K/mcL (4.3-11.1)
[2020-06-13 02:51] LABS: BUN/Creatinine Ratio 25 (6-26); Blood Urea Nitrogen 30 mg/dL (8-23); Calcium 8.8 mg/dL (8.6-10.3); Carbon Dioxide 24 mEq/L (23-29); Chloride 99 mEq/L (98-107); Glucose 162 mg/dL (70-105); Osmolality,Calculated 282 (280-300); Potassium 4.9 mEq/L (3.5-5.1); Sodium 131 mEq/L (136-145); eGFR For African Americans > 60 (> 60); eGFR For Non-African Americans > 60 (> 60)
[2020-06-13] MEDS ORDERED: Gadolinium Contrast Agent (WT Based) IV PRN (03:25)
[2020-06-13 03:47] LABS: C-Reactive Protein 9 mg/L (Less than 10)
[2020-06-13] MEDS ORDERED: 0.9 % Sodium Chloride 1,000 ML IVC SCH (05:30)
[2020-06-13] MEDS: *HR* Heparin 5,000 UNIT/ML VIAL SQ SCH ×3 (05:48→18:32)
[2020-06-13] MEDS: Insulin LISPRO 300 UNITS/3 ML VIAL SQ SCH ×3 (05:55→18:34)
[2020-06-13] MEDS: Aspirin 81 MG TAB.CHEW PO SCH (08:55)
[2020-06-13] MEDS ORDERED: Perflutren Lipid Microsphere 1.3 ML in 0.9 % Sodium Chloride 8.7 ML IVP PRN (09:38)
[2020-06-13] MEDS: Metoprolol XL (24 HR) Succ 25 MG TAB.ER.24H PO SCH ×2 (10:12→20:08)
[2020-06-13] MEDS: Gabapentin 300 MG CAPSULE PO SCH ×3 (10:35→20:09)
[2020-06-13] MEDS: *HR* OxyCODONE Immed Rel 5 MG TABLET PO PRN ×2 (13:04→20:10)
[2020-06-13] MEDS ORDERED: Insulin LISPRO 300 UNITS/3 ML VIAL SQ SCH (21:00)
[2020-06-14] MEDS: *HR* OxyCODONE Immed Rel 5 MG TABLET PO PRN (05:52)
[2020-06-14] MEDS: *HR* Heparin 5,000 UNIT/ML VIAL SQ SCH (05:52)
[2020-06-14] MEDS ORDERED: Insulin LISPRO 300 UNITS/3 ML VIAL SQ SCH (07:30)
[2020-06-14 08:37] LABS: Basophils % 0.1 %; Eosinophils # 0.1 K/mcL (0.0-0.6); Eosinophils % 0.7 %; Hemoglobin 14.7 g/dL (12.9-16.9); Immature Granulocytes % 0.5 % (0-4); Lymphocytes # 2.3 K/mcL (0.6-4.6); Lymphocytes % 17.9 %; Mean Corpuscular HGB Conc 32.7 g/dL (31.6-35.5); Mean Corpuscular Hemoglobin 32.2 pg (28.0-33.3); Mean Corpuscular Volume 98.5 fL (83.0-100.0); Mean Platelet Volume 8.8 fL (9.4-12.4); Monocytes # 0.7 K/mcL (0.0-1.3); Monocytes % 5.6 %; Neutrophils # 9.7 K/mcL (1.6-8.9); Platelet Count 197 K/mcL (140-400); Red Blood Count 4.57 M/mcL (4.19-5.50); Red Cell Distribution Width 13.3 % (11.5-14.5); Segmented Neutrophils % 75.2 %; White Blood Count 12.8 K/mcL (4.3-11.1)
[2020-06-14] MEDS: Metoprolol XL (24 HR) Succ 25 MG TAB.ER.24H PO SCH (08:37)
[2020-06-14] MEDS: Gabapentin 300 MG CAPSULE PO SCH (08:38)
[2020-06-14] MEDS: Aspirin 81 MG TAB.CHEW PO SCH (08:39)
[2020-06-14 08:57] LABS: BUN/Creatinine Ratio 28 (6-26); Blood Urea Nitrogen 26 mg/dL (8-23); Calcium 9.1 mg/dL (8.6-10.3); Carbon Dioxide 27 mEq/L (23-29); Chloride 101 mEq/L (98-107); Glucose 107 mg/dL (70-105); Magnesium 2.1 mg/dL (1.6-2.6); Osmolality,Calculated 281 (280-300); Phosphorous 2.5 mg/dL (2.7-4.5); Potassium 4.3 mEq/L (3.5-5.1); Sodium 133 mEq/L (136-145); eGFR For African Americans > 60 (> 60); eGFR For Non-African Americans > 60 (> 60)
[2020-06-14 10:58] VITALS: BP 139/81
== END 2020-06-14 11:58 | disposition home or self-care (01) ==
LOC: 3BNU 20:47 → EMEROOARM 20:47 → SUATTDRO 06-13 01:10 → 3BNU 06-13 01:35
PROVIDERS: ADMIT Family Medicine; ATTEND Internal Medicine